=== PATIENT | male | born 1975 | race Caucasian/White ===

== ENCOUNTER 2021-07-08 08:03 | Observation (INO) | payer MEDICARE ==
[2021-07-08] MEDS ORDERED: DUONEB 0.5-3 MG/3 ml Neb IH ONE ×2 (08:07→08:12)
[2021-07-08] MEDS ORDERED: solu-MEDROL 125 MG, Sterile H2O 10 ml 2 ML IV ONE ×2 (08:12)
[2021-07-08] MEDS ORDERED: Zithromax 500 MG/ 250 ML NaCl Premix 500 MG/250 ML IVPB IV STA (08:16)
[2021-07-08] MEDS ORDERED: ROCEPHIN 2 Gm-D5w 50ML BAG** 2 G/50 ML IVPB IV STA (08:16)
[2021-07-08 08:18] LABS: A-aADO2 96; ABG HEMOGLOBIN 14.7; ABG POTASSIUM 4.3 (3.5-5.1); ABG SITE RIGHT RADIAL; ALLEN TEST OK? yes; ARTERIAL BLD GAS O2 SATURATION 98.1 % (95-100); ARTERIAL BLOOD GAS BASE EXCESS 1.1 (-2.0-2.0); ARTERIAL BLOOD GAS FIO2 32 %; ARTERIAL BLOOD GAS PCO2 37 mmHg (35-45); ARTERIAL BLOOD GAS PO2 86 mmHg (75-100); ARTERIAL BLOOD GAS pH 7.44 (7.35-7.45); CARBOXYHEMOGLOBIN 3.3 % THgb (0.0-6.9); HCO3- 25.1 (22-28); Methhemoglobin 0.9 % (1.4-1.5)
[2021-07-08] MEDS ORDERED: BRETHINE 1 MG/ML SQ ONE (08:18)
--- NOTE | 2021-07-08 08:18 | ERPHSYRPT ---
- History of Present Illness Time Seen by Provider: 07/08/21 08:10 Source: patient Exam Limitations: no limitations Patient Subjective Stated Complaint: Pt states "I was helping my mom hang pictures last night and I started to have difficulty breathing. I thought I could sleep it off." Triage Nursing Assessment: Pt presented alert and oriented X 3, skin pwd. Pt has audible wheezes. Pt has audible wheezes. PT able to speak in 2 to 3 word sente nces pt tachypneic. Pt uses trimex for HIV, viral count undetectable and CD4 count was 900. Physician History: Patient is a 46-year-old male HIV positive history of COPD current smoker presents to our ED with complaints of shortness of breath that started last night. Shortness of breath progressed throughout the night. Patient ran out of his home albuterol nebulizers. Patient states his last viral load was undetectable. CD4 was 900. Patient currently on Triumeq HIV therapy. Patient symptoms are moderate in intensity. No specific worsening or improving factors. This HPI is limited due to respiratory distress. Patient able to speak in 2 and 3 word sentences. No chest pain. No nausea vomiting or diaphoresis. No diarrhea. No rash. No fever. Patient voices no other complaints or concerns at this time. Timing/Duration: yesterday Activities at Onset: none Severity of Dyspnea-Max: moderate Severity of Dyspnea-Current: moderate Possible Cause: occasional episodes Modifying Factors: Improves With: nothing Associated Symptoms: anxiety, cough, wheezing, No ankle swelling, No leg swelling, No sweating, No tightness, No tingling face Allergies/Adverse Reactions: No Known Drug Allergies Allergy (Verified 07/08/21 08:16) Home Medications: Abacavir/Dolutegravir/Lamivudi [Triumeq 600-50-300 mg Tablet] 1 tab PO DAILY 07/08/21 [History] Albuterol Sulfate [Proair Respiclick] 90 mcg IH DAILY 07/08/21 [History] Budesonide/Formoterol Fumarate [Symbicort 160-4.5 Mcg Inhaler] 10.2 gm IH DAILY 07/08/21 [History] Bumetanide 1 mg [Bumex 1 mg] 1 mg PO DAILY 07/08/21 [History] Carvedilol 6.25 mg [Coreg 6.25 MG] 6.25 mg PO BID 07/08/21 [History] Losartan Potassium 50 mg [Cozaar 50 MG] 50 mg PO DAILY 07/08/21 [History] Pantoprazole 20 mg [Protonix 20MG Tablet] 20 mg PO DAILY 07/08/21 [History] Tiotropium [place] [Spiriva Respimat] 1 unit IH DAILY 07/08/21 [History] Hx Tetanus, Diphtheria Vaccination/Date Given: No Hx Influenza Vaccination/Date Given: No Hx Pneumococcal Vaccination/Date Given: No Immunizations Up to Date: Yes Travel Risk - International Travel Have you traveled outside of the country in past 3 weeks: No - Coronavirus Screening Are you exhibiting any of the following symptoms?: No Close contact with a COVID-19 positive Pt in past 14-21 Days: No - Vaccine Status Have you recieved a Covid-19 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: 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 - Vaccination Dates Date of 2cond Vaccination (if applicable): UNKNOWN - Review of Systems Constitutional: No Symptoms, No Fever, No Chills Eyes: No Symptoms Ears, Nose, & Throat: No Symptoms Respiratory: No Symptoms, No Cough, No Dyspnea Cardiac: No Symptoms, No Chest Pain, No Edema, No Syncope Abdominal/Gastrointestinal: No Symptoms, No Abdominal Pain, No Nausea, No Vomiting, No Diarrhea Genitourinary Symptoms: No Symptoms, No Dysuria Musculoskeletal: No Symptoms, No Back Pain, No Neck Pain Skin: No Symptoms, No Rash Neurological: No Symptoms, No Dizziness, No Focal Weakness, No Sensory Changes Psychological: No Symptoms Endocrine: No Symptoms Hematologic/Lymphatic: No Symptoms Immunological/Allergic: No Symptoms All Other Systems: Reviewed and Negative - Past Medical History Pertinent Past Medical History: Yes Neurological History: Stroke ENT History: No Pertinent History Cardiac History: High Cholesterol, Hypertension Respiratory History: Asthma, COPD Endocrine Medical History: No Pertinent History Musculoskeletal History: Bone Cancer GI Medical History: GERD History: No Pertinent History Psycho-Social History: Anxiety, Depression Male Reproductive Disorders: No Pertinent History - Past Surgical History Past Surgical History: Yes Other Surgical History: left wrist. jose - Social History Smoking Status: Current every day smoker How long have you smoked: 1 p Exposure to second hand smoke: Yes Drug Use: marijuana Patient Lives Alone: No - Nursing Vital Signs Nursing Vital Signs: Initial Vital Signs Temperature 97.1 F 07/08/21 08:04 Pulse Rate 117 H 07/08/21 08:04 Respiratory Rate 32 H 07/08/21 08:04 Blood Pressure 142/102 07/08/21 08:04 O2 Sat by Pulse Oximetry 92 L 07/08/21 08:04 Pain Scale Pain Intensity 0 - Physical Exam General Appearance: no apparent distress, alert Eye Exam: PERRL/EOMI, eyes nml inspection Ears, Nose, Throat Exam: hearing grossly normal, normal ENT inspection, normal pharynx Neck Exam: normal inspection, non-tender, supple, full range of motion Respiratory Exam: respiratory distress, diminished breath sounds, accessory muscle use, rhonchi, wheezing, No stridor, No pleural rub Cardiovascular/Chest Exam: normal heart sounds, regular rate/rhythm, No murmur Abdominal/Gastrointestinal Exam: soft, No tenderness, No distention, No mass Extremity Exam: non-tender, normal range of motion, normal inspection, no calf tenderness, no pedal edema Peripheral Pulses Exam: dorsalis-pedis (R): 2+, dorsalis-pedis (L): 2+ Neurologic Exam: alert, oriented x 3, cooperative, intraoperative neuro tech II-XII nml as tested, sensation nml, No motor deficits Skin Exam: normal color, warm, No dry Lymphatic Exam: No adenopathy SpO2 Interpretation: hypoxic SpO2: 92 O2 Delivery: Room Air - Course Nursing assessment & vital signs reviewed: Yes EKG Interpreted by Me: RATE ([id number]), Sinus Tach, NORMAL AXIS, NORMAL INTERVALS - Radiology Exams Chest X-ray Interpretation: Teleradiologist Report (Portable chest demonstrates small right base calcified granuloma. Emitting heart lungs are normal bony thorax intact.) Ordered Tests: Active Orders 24 hr Category Date Time Status Test Desk Trouble Locator STAT Care 07/08/21 08:13 Active EKG-ER Only STAT Care 07/08/21 08:12 Active IV Insertion STAT Care 07/08/21 08:12 Active Pulse Oximetry (ED) STAT Care 07/08/21 08:12 Active CHEST 1 VIEW (PORTABLE) Stat Exams 07/08/21 08:13 Completed CHEST WITH CONTRAST [CT] Stat Exams 07/08/21 09:01 Completed ARTERIAL BLOOD GASES Stat Lab 07/08/21 08:12 Completed BLOOD CULTURE Stat Lab 07/08/21 08:32 Received CBC W DIFF Stat Lab 07/08/21 08:12 Completed CMP Stat Lab 07/08/21 08:10 Completed D-DIMER QUANTITATIVE Stat Lab 07/08/21 08:18 Completed INFLUENZA A+B DEBBIE Stat Lab 07/08/21 08:32 Completed Lactic Acid Urgent Lab 07/08/21 08:15 Completed NT PRO BNP Stat Lab 07/08/21 08:10 Completed TROPONIN Q3H Lab 07/08/21 08:10 Completed TROPONIN Q3H Lab 07/08/21 11:30 Completed TROPONIN Q3H Lab 07/08/21 14:15 Ordered TROPONIN Q3H Lab 07/08/21 17:15 Ordered TROPONIN Q3H Lab 07/08/21 20:15 Ordered UA W/RFX UR CULTURE Stat Lab 07/08/21 08:59 Completed Respiratory Therapy Assessment DAILY RT 07/08/21 08:31 Active Transfer Order Routine Transfer 07/08/21 Ordered Medication Summary Generic Name Dose Route Start Last Admin Trade Name Freq PRN Reason Stop Dose Admin Magnesium Sulfate/Dextrose 100 mls @ 100 mls/hr 07/08/21 08:30 07/08/21 09:58 Magnesium 1 Gm / 100 Ml D5w IV 07/08/21 10:29 100 mls/hr Q1H MILEY Administration Discontinued Medications Generic Name Dose Route Start Last Admin Trade Name Freq PRN Reason Stop Dose Admin Albuterol/Ipratropium 3 ml 07/08/21 08:12 07/08/21 08:20 Ipratropium/Albuterol Sulfate 3 Ml Ampul.Neb IH 07/08/21 08:13 3 ml STAT ONE Administration Albuterol/Ipratropium Confirm 07/08/21 08:07 Ipratropium/Albuterol Sulfate 3 Ml Ampul.Neb Administered 07/08/21 08:08 Dose 3 ml IH .STK-MED ONE Methylprednisolone Sodium 0 mg 07/08/21 08:12 07/08/21 08:28 Succinate 125 mg/ Sterile IV 07/08/21 08:13 125 mg Water 2 ml STAT ONE Administration Ceftriaxone Sodium/Dextrose 2 g in 50 mls @ 100 mls/hr 07/08/21 08:16 07/08/21 10:31 Rocephin 2 Gm-D5w 50ml Bag IV 07/08/21 08:45 Infused STAT STA Infusion Azithromycin 500 mg in 250 mls @ 250 mls/hr 07/08/21 08:16 07/08/21 10:31 Zithromax 500 Mg/ 250 Ml Nacl Premix IV 07/08/21 09:15 Infused STAT STA Infusion Azithromycin Confirm 07/08/21 08:27 Zithromax 500 Mg/ 250 Ml Nacl Premix Administered 07/08/21 08:28 Dose 500 mg in 250 mls @ ud IV .STK-MED ONE Ceftriaxone Sodium/Dextrose Confirm 07/08/21 08:27 Rocephin 2 Gm-D5w 50ml Bag Administered 07/08/21 08:28 Dose 2 g in 50 mls @ ud IV .STK-MED ONE Methylprednisolone Sodium Succinate Confirm 07/08/21 08:27 Methylprednis Sod Succ 125 Mg/2 Ml Vial Administered 07/08/21 08:28 Dose 125 mg .ROUTE .STK-MED ONE Sterile Water Confirm 07/08/21 08:27 Water For Injection,Sterile 10 Ml Vial Administered 07/08/21 08:28 Dose 10 ml IJ .STK-MED ONE Terbutaline Sulfate 0.25 mg 07/08/21 08:18 07/08/21 08:28 Terbutaline Sulfate 1 Mg/Ml Vial SQ 07/08/21 08:19 0.25 mg STAT ONE Administration Terbutaline Sulfate Confirm 07/08/21 08:26 Terbutaline Sulfate 1 Mg/Ml Vial Administered 07/08/21 08:27 Dose 1 mg .ROUTE .STK-MED ONE Lab/Rad Data: Laboratory Result Diagrams 07/08/21 08:12 07/08/21 08:10 Laboratory Results 07/08/21 07/08/21 07/08/21 Range/Units 11:30 11:09 08:59 WBC (4.0-10.5) K/mm3 RBC (4.1-5.6) M/mm3 Hgb (12.5-18.0) gm/dl Hct (42-50) % MCV (78-100) fl MCH (26-32) pg MCHC (32-36) g/dl RDW (11.5-14.0) % Plt Count (150-450) K/mm3 MPV (7.5-11.0) fl Gran % (36.0-66.0) % Eos # (Auto) (0-0.5) Absolute Lymphs (auto) (1.0-4.6) Absolute Monos (auto) (0.0-1.3) Lymphocytes % (24.0-44.0) % Monocytes % (0.0-12.0) % Eosinophils % (0.00-5.0) % Basophils % (0.0-0.4) % Absolute Granulocytes (1.4-6.9) Basophils # (0-0.4) D-Dimer (215-500) ng/mL Puncture Site pCO2 (35-45) mmHg pO2 (75-100) mmHg Base Excess (-2.0-2.0) O2 Saturation (94-100) g/dF ABG pH (7.35-7.45) ABG HCO3 (22-28) ABG O2 Sat (Measured) (95-100) % Crispin Test A-a Gradient a/A Ratio Hemoglobin Carboxyhemoglobin (0.0-6.9) % THgb Methemoglobin (1.4-1.5) % Temperature C POC O2 Flow Rate % Sodium (137-145) mmol/L Potassium (3.5-5.1) mmol/L Chloride (98-107) mmol/L Carbon Dioxide (22-30) mmol/L Anion Gap (5-15) MEQ/L BUN (9-20) mg/dL Creatinine (0.66-1.25) mg/dL Estimated GFR ML/MIN Glucose (74-106) mg/dL Lactic Acid (0.4-2.0) Calcium (8.4-10.2) mg/dL Total Bilirubin (0.2-1.3) mg/dL AST (17-59) U/L ALT (0-50) U/L Alkaline Phosphatase (38-126) U/L Troponin I < 0.012 (0.000-0.034) ng/mL NT-Pro-B Natriuret Pep (0-450) pg/mL Serum Total Protein (6.3-8.2) g/dL Albumin (3.5-5.0) g/dL Urine Color COLORLESS (YELLOW) Urine Appearance CLEAR (CLEAR) Urine pH 5.0 (5-6) Ur Specific [place] 1.005 (1.005-1.025) Urine Protein NEGATIVE (Negative) Urine Ketones NEGATIVE (NEGATIVE) Urine Blood NEGATIVE (0-5) Eric/ul Urine Nitrite NEGATIVE (NEGATIVE) Urine Bilirubin NEGATIVE (NEGATIVE) Urine Urobilinogen NEGATIVE (0-1) mg/dL Ur Leukocyte Esterase NEGATIVE (NEGATIVE) Urine WBC (Auto) NONE (0-5) /HPF Urine RBC (Auto) NONE (0-2) /HPF U Epithel Cells (Auto) NONE (FEW) /HPF Urine Bacteria (Auto) NONE (NEGATIVE) /HPF Urine Culture Reflexed NO (NO) Urine Glucose NEGATIVE (NEGATIVE) mg/dL Influenza Type A Ag NEGATIVE (NEGATIVE) Influenza Type B Ag NEGATIVE (NEGATIVE) RSV (PCR) NEGATIVE (Negative) SARS-CoV-2 (PCR) NEGATIVE (NEGATIVE) 07/08/21 07/08/21 07/08/21 Range/Units 08:32 08:18 08:15 WBC (4.0-10.5) K/mm3 RBC (4.1-5.6) M/mm3 Hgb (12.5-18.0) gm/dl Hct (42-50) % MCV (78-100) fl MCH (26-32) pg MCHC (32-36) g/dl RDW (11.5-14.0) % Plt Count (150-450) K/mm3 MPV (7.5-11.0) fl Gran % (36.0-66.0) % Eos # (Auto) (0-0.5) Absolute Lymphs (auto) (1.0-4.6) Absolute Monos (auto) (0.0-1.3) Lymphocytes % (24.0-44.0) % Monocytes % (0.0-12.0) % Eosinophils % (0.00-5.0) % Basophils % (0.0-0.4) % Absolute Granulocytes (1.4-6.9) Basophils # (0-0.4) D-Dimer 872 H* (215-500) ng/mL Puncture Site pCO2 (35-45) mmHg pO2 (75-100) mmHg Base Excess (-2.0-2.0) O2 Saturation (94-100) g/dF ABG pH (7.35-7.45) ABG HCO3 (22-28) ABG O2 Sat (Measured) (95-100) % Crispin Test A-a Gradient a/A Ratio Hemoglobin Carboxyhemoglobin (0.0-6.9) % THgb Methemoglobin (1.4-1.5) % Temperature C POC O2 Flow Rate % Sodium (137-145) mmol/L Potassium (3.5-5.1) mmol/L Chloride (98-107) mmol/L Carbon Dioxide (22-30) mmol/L Anion Gap (5-15) MEQ/L BUN (9-20) mg/dL Creatinine (0.66-1.25) mg/dL Estimated GFR ML/MIN Glucose (74-106) mg/dL Lactic Acid 1.5 (0.4-2.0) Calcium (8.4-10.2) mg/dL Total Bilirubin (0.2-1.3) mg/dL AST (17-59) U/L ALT (0-50) U/L Alkaline Phosphatase (38-126) U/L Troponin I (0.000-0.034) ng/mL NT-Pro-B Natriuret Pep (0-450) pg/mL Serum Total Protein (6.3-8.2) g/dL Albumin (3.5-5.0) g/dL Urine Color (YELLOW) Urine Appearance (CLEAR) Urine pH (5-6) Ur Specific [place] (1.005-1.025) Urine Protein (Negative) Urine Ketones (NEGATIVE) Urine Blood (0-5) Eric/ul Urine Nitrite (NEGATIVE) Urine Bilirubin (NEGATIVE) Urine Urobilinogen (0-1) mg/dL Ur Leukocyte Esterase (NEGATIVE) Urine WBC (Auto) (0-5) /HPF Urine RBC (Auto) (0-2) /HPF U Epithel Cells (Auto) (FEW) /HPF Urine Bacteria (Auto) (NEGATIVE) /HPF Urine Culture Reflexed (NO) Urine Glucose (NEGATIVE) mg/dL Influenza Type A Ag NEGATIVE (NEGATIVE) Influenza Type B Ag NEGATIVE (NEGATIVE) RSV (PCR) (Negative) SARS-CoV-2 (PCR) (NEGATIVE) 07/08/21 07/08/21 07/08/21 Range/Units 08:12 08:12 08:10 WBC 9.1 (4.0-10.5) K/mm3 RBC 4.90 (4.1-5.6) M/mm3 Hgb 14.4 (12.5-18.0) gm/dl Hct 46.3 (42-50) % MCV 94.5 (78-100) fl MCH 29.4 (26-32) pg MCHC 31.1 L (32-36) g/dl RDW 15.6 H (11.5-14.0) % Plt Count 265 (150-450) K/mm3 MPV 10.3 (7.5-11.0) fl Gran % 69.3 H (36.0-66.0) % Eos # (Auto) 0.33 (0-0.5) Absolute Lymphs (auto) 1.39 (1.0-4.6) Absolute Monos (auto) 1.05 (0.0-1.3) Lymphocytes % 15.3 L (24.0-44.0) % Monocytes % 11.5 (0.0-12.0) % Eosinophils % 3.6 (0.00-5.0) % Basophils % 0.3 (0.0-0.4) % Absolute Granulocytes 6.30 (1.4-6.9) Basophils # 0.03 (0-0.4) D-Dimer (215-500) ng/mL Puncture Site RIGHT RADIAL pCO2 37 (35-45) mmHg pO2 86 (75-100) mmHg Base Excess 1.1 (-2.0-2.0) O2 Saturation 94.0 (94-100) g/dF ABG pH 7.44 (7.35-7.45) ABG HCO3 25.1 (22-28) ABG O2 Sat (Measured) 98.1 (95-100) % Crispin Test yes A-a Gradient 96 a/A Ratio 0.47 Hemoglobin 14.7 Carboxyhemoglobin 3.3 (0.0-6.9) % THgb Methemoglobin 0.9 L (1.4-1.5) % Temperature 37.0 C POC O2 Flow Rate 32 % Sodium (137-145) mmol/L Potassium 4.3 (3.5-5.1) mmol/L Chloride (98-107) mmol/L Carbon Dioxide (22-30) mmol/L Anion Gap (5-15) MEQ/L BUN (9-20) mg/dL Creatinine (0.66-1.25) mg/dL Estimated GFR ML/MIN Glucose (74-106) mg/dL Lactic Acid (0.4-2.0) Calcium (8.4-10.2) mg/dL Total Bilirubin (0.2-1.3) mg/dL AST (17-59) U/L ALT (0-50) U/L Alkaline Phosphatase (38-126) U/L Troponin I < 0.012 (0.000-0.034) ng/mL NT-Pro-B Natriuret Pep (0-450) pg/mL Serum Total Protein (6.3-8.2) g/dL Albumin (3.5-5.0) g/dL Urine Color (YELLOW) Urine Appearance (CLEAR) Urine pH (5-6) Ur Specific [place] (1.005-1.025) Urine Protein (Negative) Urine Ketones (NEGATIVE) Urine Blood (0-5) Eric/ul Urine Nitrite (NEGATIVE) Urine Bilirubin (NEGATIVE) Urine Urobilinogen (0-1) mg/dL Ur Leukocyte Esterase (NEGATIVE) Urine WBC (Auto) (0-5) /HPF Urine RBC (Auto) (0-2) /HPF U Epithel Cells (Auto) (FEW) /HPF Urine Bacteria (Auto) (NEGATIVE) /HPF Urine Culture Reflexed (NO) Urine Glucose (NEGATIVE) mg/dL Influenza Type A Ag (NEGATIVE) Influenza Type B Ag (NEGATIVE) RSV (PCR) (Negative) SARS-CoV-2 (PCR) (NEGATIVE) 07/08/21 Range/Units 08:10 WBC (4.0-10.5) K/mm3 RBC (4.1-5.6) M/mm3 Hgb (12.5-18.0) gm/dl Hct (42-50) % MCV (78-100) fl MCH (26-32) pg MCHC (32-36) g/dl RDW (11.5-14.0) % Plt Count (150-450) K/mm3 MPV (7.5-11.0) fl Gran % (36.0-66.0) % Eos # (Auto) (0-0.5) Absolute Lymphs (auto) (1.0-4.6) Absolute Monos (auto) (0.0-1.3) Lymphocytes % (24.0-44.0) % Monocytes % (0.0-12.0) % Eosinophils % (0.00-5.0) % Basophils % (0.0-0.4) % Absolute Granulocytes (1.4-6.9) Basophils # (0-0.4) D-Dimer (215-500) ng/mL Puncture Site pCO2 (35-45) mmHg pO2 (75-100) mmHg Base Excess (-2.0-2.0) O2 Saturation (94-100) g/dF ABG pH (7.35-7.45) ABG HCO3 (22-28) ABG O2 Sat (Measured) (95-100) % Crispin Test A-a Gradient a/A Ratio Hemoglobin Carboxyhemoglobin (0.0-6.9) % THgb Methemoglobin (1.4-1.5) % Temperature C POC O2 Flow Rate % Sodium 141 (137-145) mmol/L Potassium 4.6 (3.5-5.1) mmol/L Chloride 105 (98-107) mmol/L Carbon Dioxide 28 (22-30) mmol/L Anion Gap 13.4 (5-15) MEQ/L BUN 14 (9-20) mg/dL Creatinine 1.11 (0.66-1.25) mg/dL Estimated GFR > 60.0 ML/MIN Glucose 102 (74-106) mg/dL Lactic Acid (0.4-2.0) Calcium 8.9 (8.4-10.2) mg/dL Total Bilirubin 0.30 (0.2-1.3) mg/dL AST 26 (17-59) U/L ALT 18 (0-50) U/L Alkaline Phosphatase 87 (38-126) U/L Troponin I (0.000-0.034) ng/mL NT-Pro-B Natriuret Pep 48.3 (0-450) pg/mL Serum Total Protein 7.8 (6.3-8.2) g/dL Albumin 4.4 (3.5-5.0) g/dL Urine Color (YELLOW) Urine Appearance (CLEAR) Urine pH (5-6) Ur Specific [place] (1.005-1.025) Urine Protein (Negative) Urine Ketones (NEGATIVE) Urine Blood (0-5) Eric/ul Urine Nitrite (NEGATIVE) Urine Bilirubin (NEGATIVE) Urine Urobilinogen (0-1) mg/dL Ur Leukocyte Esterase (NEGATIVE) Urine WBC (Auto) (0-5) /HPF Urine RBC (Auto) (0-2) /HPF U Epithel Cells (Auto) (FEW) /HPF Urine Bacteria (Auto) (NEGATIVE) /HPF Urine Culture Reflexed (NO) Urine Glucose (NEGATIVE) mg/dL Influenza Type A Ag (NEGATIVE) Influenza Type B Ag (NEGATIVE) RSV (PCR) (Negative) SARS-CoV-2 (PCR) (NEGATIVE) - Progress Progress: improved Air Movement: poor Progress Note: Case discussed with Dr. Pollard who accepts admission to observation. Covid test pending. D-dimer positive. CTA chest negative for PE. Patient responding well to nebulizer treatment and steroids. Patient not ready for discharge. Patient is still wheezing however he is no longer hypoxic at this time. Will admit for additional treatment of hypoxia/COPD exacerbation as well. Patient is a smoker. Patient is a smoker. Patient aware that he must quit smoking. 07/08/21 10:50 Patient is Covid negative. Admission orders placed. Plan of care discussed with patient. He agrees to admission [facility] for further evaluation and treatment. Portions of this note were created with voice recognition technology. There may be grammatical, spelling, punctuation or sound alike errors 07/08/21 12:52 07/08/21 12:54 Blood Culture(s) Obtained: Yes Antibiotics given: Yes Discussed with : Jillian Counseled pt/family regarding: lab results, diagnosis, rad results, smoking cessation - Departure Departure Disposition: Observation Clinical Impression: Lung granuloma, Arthritis of spine, Renal cyst, COPD exacerbation Condition: Stable Critical Care Time: No Referrals: DOCTOR,NO FAMILY [Primary Care Provider] - Follow up/PCP as directed Instructions: Chronic Obstructive Pulmonary Disease
[2021-07-08 08:26] LABS: BASOPHIL % 0.3 % (0.0-0.4); Basophil (Absolute #) 0.03 (0-0.4); Eosinophil % 3.6 % (0.00-5.0); Eosinophil (Absolute #) 0.33 (0-0.5); Hematocrit 46.3 % (42-50); Hemoglobin 14.4 gm/dl (12.5-18.0); Lymphocyte (Absolute #) 1.39 (1.0-4.6); Lymphocytes % 15.3 % (24.0-44.0); Mean Cell Volume 94.5 fl (78-100); Mean Corpuscular Hemoglobin 29.4 pg (26-32); Mean Corpuscular Hgb Concent. 31.1 g/dl (32-36); Mean Platelet Volume 10.3 fl (7.5-11.0); Monocyte (Absolute #) 1.05 (0.0-1.3); Monocytes % 11.5 % (0.0-12.0); Neutrophil % 69.3 % (36.0-66.0); Platelet Count 265 K/mm3 (150-450); Red Cell Distribution Width 15.6 % (11.5-14.0); White Blood Count 9.1 K/mm3 (4.0-10.5)
[2021-07-08] MEDS ORDERED: BRETHINE 1 MG/ML ONE (08:26)
[2021-07-08] MEDS ORDERED: Sterile H2O 10 ml IJ ONE (08:27)
[2021-07-08] MEDS ORDERED: ROCEPHIN 2 Gm-D5w 50ML BAG** 2 G/50 ML IVPB IV ONE (08:27)
[2021-07-08] MEDS ORDERED: Zithromax 500 MG/ 250 ML NaCl Premix 500 MG/250 ML IVPB IV ONE (08:27)
[2021-07-08] MEDS ORDERED: solu-MEDROL ONE (08:27)
[2021-07-08] MEDS ORDERED: Magnesium 1 Gm / 100 Ml D5W*** 100 ML IV ONE ×2 (08:27→08:57)
[2021-07-08] MEDS: Magnesium 1 Gm / 100 Ml D5W*** 100 ML IV SCH ×2 (08:30→09:58)
[2021-07-08 08:38] LABS: ALBUMIN 4.4 g/dL (3.5-5.0); ALKALINE PHOSPHATASE 87 U/L (38-126); ANION GAP 13.4 MEQ/L (5-15); BLOOD UREA NITROGEN 14 mg/dL (9-20); CHLORIDE 105 mmol/L (98-107); Calcium 8.9 mg/dL (8.4-10.2); Carbon Dioxide 28 mmol/L (22-30); Creatinine 1 1.11 mg/dL (0.66-1.25); EST GLOMERULAR FILTRATION RATE > 60.0 ML/MIN; Glucose 102 mg/dL (74-106); NT PRO BNP 48.3 pg/mL (0-450); Potassium 4.6 mmol/L (3.5-5.1); SGOT/AST 26 U/L (17-59); SGPT/ALT 18 U/L (0-50); SODIUM 141 mmol/L (137-145); Total Protein 7.8 g/dL (6.3-8.2)
[2021-07-08 09:02] LABS: Appearance CLEAR (CLEAR); Bilirubin NEGATIVE (NEGATIVE); Blood NEGATIVE Ery/ul (0-5); Glucose NEGATIVE (NEGATIVE); Ketones NEGATIVE (NEGATIVE); Leukocyte Esterase NEGATIVE (NEGATIVE); Nitrite NEGATIVE (NEGATIVE); Protein,Urine Dip NEGATIVE (Negative); Specific Gravity 1.005 (1.005-1.025); Urobilinogen NEGATIVE mg/dL (0-1)
[2021-07-08 09:10] LABS: INFLUENZA A NEGATIVE (NEGATIVE); INFLUENZA B NEGATIVE (NEGATIVE)
--- NOTE | 2021-07-08 09:22 | XRAY ---
Indication: Cough and short of breath. Comparison: None Portable chest demonstrates small right base calcified granuloma. Remaining heart and lungs normal. Bony thorax intact.
--- NOTE | 2021-07-08 10:29 | XRAY ---
Indication: Short of breath. Elevated d-dimer. Multiple contiguous axial images obtained through the chest using 100 cc Isovue 370 contrast and PE protocol. Comparison: None Suboptimal opacification of the pulmonary arteries limits evaluation for pulmonary embolus. No obvious pulmonary embolus. Heart not enlarged. Aorta is normal in course and caliber. Small subcarinal calcified node. No pathologic mediastinal/hilar lymphadenopathy. Lungs inflated and clear with incidental small right lower lobe calcified granuloma. Bony thorax intact with mild degenerative changes throughout the spine. Limited upper abdomen demonstrates cholecystectomy clips and incompletely visualized left renal cysts, largest 1.4 cm. Impression: 1. Pulmonary embolus evaluation limited due to suboptimal contrast opacification. No obvious pulmonary embolus. 2. No acute cardiopulmonary abnormalities. 3. Incidental left renal cysts and old granulomatous disease.
[2021-07-08 12:18] LABS: INFLUENZA A NEGATIVE (NEGATIVE); INFLUENZA B NEGATIVE (NEGATIVE); RESPIRATORY SYNCTIAL VIRUS NEGATIVE (Negative); SARS-CoV-2 Xpert Express NEGATIVE (NEGATIVE)
[2021-07-08] MEDS ORDERED: PROVENTIL 2.5 MG/3 ML NEB IH SCH (15:00)
[2021-07-08] MEDS ORDERED: MEDICATION INTERVENTION PO SCH (15:30)
[2021-07-08] MEDS ORDERED: MEDICATION INTERVENTION MC SCH (15:30)
--- NOTE | 2021-07-08 16:15 | PCM.HP ---
History of Present Illness - Chief Complaint Chief Complaint: COPD Exacerbation History of Present Illness: is a 46 year old male with no local physician, he came to the ER complaining of a 2 day history of cough and worsening shortness of breath, he has known HIV but states last CD4 count was 900 and viral load was undetectable. His cough is nonpoductive, no fever. He recently moved to the area with a friend so has no nebulizer machine or oxygen equipment for the last month or so. - Review of Systems Constitutional: No Fever, No Chills Respiratory: Cough, Short Of Breath, Wheezing Cardiac: No Chest Pain, No Edema, No Syncope Abdominal/Gastrointestinal: No Abdominal Pain, No Nausea, No Vomiting, No Diarrhea Genitourinary Symptoms: No Dysuria Skin: No Rash All Other Systems: Reviewed and Negative Medications & Allergies Home Medications: Home Medication List Abacavir/Dolutegravir/Lamivudi [Triumeq 600-50-300 mg Tablet] 1 tab PO DAILY 07/08/21 [History Confirmed 07/08/21] Albuterol Sulfate [Proair Respiclick] 90 mcg IH DAILY 07/08/21 [History Confirmed 07/08/21] Budesonide/Formoterol Fumarate [Symbicort 160-4.5 Mcg Inhaler] 10.2 gm IH DAILY 07/08/21 [History Confirmed 07/08/21] Bumetanide 1 mg [Bumex 1 mg] 1 mg PO BID 07/08/21 [History Confirmed 07/08/21] Carvedilol 6.25 mg [Coreg 6.25 MG] 6.25 mg PO BID 07/08/21 [History Confirmed 07/08/21] Famotidine [Pepcid] 40 mg PO DAILY 07/08/21 [History Confirmed 07/08/21] Fluticasone Propionate [Flovent Diskus] 50 mcg IH DAILY 07/08/21 [History Confirmed 07/08/21] Losartan Potassium 50 mg [Cozaar 50 MG] 100 mg PO DAILY 07/08/21 [History Confirmed 07/08/21] Oxybutynin Chloride [Oxybutynin Chloride ER] 5 mg PO DAILY 07/08/21 [History Confirmed 07/08/21] Pantoprazole 20 mg [Protonix 20MG Tablet] 20 mg PO DAILY 07/08/21 [History Confirmed 07/08/21] Tiotropium [place] [Spiriva Respimat] 1 unit IN BID 07/08/21 [History Confirmed 07/08/21] Allergies/Adverse Reactions: Allergies Allergy/AdvReac Type Severity Reaction Status Date / Time ciprofloxacin [From Cipro] Allergy Severe Verified 07/08/21 13:29 - Past Medical History Past Medical History: No Neurological History: Peripheral Neuropathy, Stroke ENT History: No Pertinent History Cardiac History: High Cholesterol, Hypertension Respiratory History: Asthma, COPD, Pneumonia, Sleep Apnea Endocrine Medical History: No Pertinent History Musculoskelatal History: Arthritis GI Medical History: GERD, Hemorrhoids History: No Pertinent History Pyscho-Social History: Depression Male Reproductive Disorders: No Pertinent History - Past Surgical History Past Surgical History: Yes Neuro Surgical History: No Pertinent History Cardiac History: No Pertinent History Respiratory Surgery: No Pertinent History GI Surgical History: Cholecystectomy Genitourinary Surgical Hx: No Pertinent History Musculskeletal Surgical Hx: Orthopedic Surgery Male Surgical History: No Pertinent History Other Surgical History: left wrist 9 screws and 1 plate - Social History Smoking Status: Current every day smoker How long have you smoked: 20+ years Exposure to second hand smoke: Yes Alcohol: Rarely Drug Use: marijuana - Physical Exam Vital Signs: Vital Signs - 24 hr Temp Pulse Resp BP Pulse Ox 07/08/21 15:33 96.8 F 111 H 18 152/79 89 L 07/08/21 15:29 104 H 24 86 L 07/08/21 13:38 97.3 F 100 H 30 H 122/69 90 L 07/08/21 12:55 92 L 07/08/21 12:45 97.2 F 90 20 105/58 96 07/08/21 11:55 97.2 F 98 H 20 133/90 98 07/08/21 10:32 97.9 F 102 H 20 106/71 98 07/08/21 09:08 97.9 F 98 H 24 114/76 94 L 07/08/21 08:59 94 L 07/08/21 08:34 106 H 28 H 96 07/08/21 08:04 97.1 F 117 H 32 H 142/102 95 General Appearance: obese, other (smells strongly of body odor, poor hygiene noted.) Neurologic Exam: alert, cooperative Respiratory Exam: accessory muscle use, prolonged expirations, wheezing Cardiovascular Exam: regular rate/rhythm, normal heart sounds, normal peripheral pulses Gastrointestinal/Abdomen Exam: soft, normal bowel sounds, No tenderness, No mass Extremity Exam: normal inspection, normal range of motion, pelvis stable Skin Exam: normal color, warm, dry, No rash Results - Labs Lab/Micro Results: Lab Results-Last 24 Hours 07/08/21 07/08/21 07/08/21 Range/Units 08:10 08:10 08:12 WBC 9.1 (4.0-10.5) K/mm3 RBC 4.90 (4.1-5.6) M/mm3 Hgb 14.4 (12.5-18.0) gm/dl Hct 46.3 (42-50) % MCV 94.5 (78-100) fl MCH 29.4 (26-32) pg MCHC 31.1 L (32-36) g/dl RDW 15.6 H (11.5-14.0) % Plt Count 265 (150-450) K/mm3 MPV 10.3 (7.5-11.0) fl Gran % 69.3 H (36.0-66.0) % Eos # (Auto) 0.33 (0-0.5) Absolute Lymphs (auto) 1.39 (1.0-4.6) Absolute Monos (auto) 1.05 (0.0-1.3) Lymphocytes % 15.3 L (24.0-44.0) % Monocytes % 11.5 (0.0-12.0) % Eosinophils % 3.6 (0.00-5.0) % Basophils % 0.3 (0.0-0.4) % Absolute Granulocytes 6.30 (1.4-6.9) Basophils # 0.03 (0-0.4) D-Dimer (215-500) ng/mL Puncture Site pCO2 (35-45) mmHg pO2 (75-100) mmHg Base Excess (-2.0-2.0) O2 Saturation (94-100) g/dF ABG pH (7.35-7.45) ABG HCO3 (22-28) ABG O2 Sat (Measured) (95-100) % Crispin Test A-a Gradient a/A Ratio Hemoglobin Carboxyhemoglobin (0.0-6.9) % THgb Methemoglobin (1.4-1.5) % Temperature C POC O2 Flow Rate % Sodium 141 (137-145) mmol/L Potassium 4.6 (3.5-5.1) mmol/L Chloride 105 (98-107) mmol/L Carbon Dioxide 28 (22-30) mmol/L Anion Gap 13.4 (5-15) MEQ/L BUN 14 (9-20) mg/dL Creatinine 1.11 (0.66-1.25) mg/dL Estimated GFR > 60.0 ML/MIN Glucose 102 (74-106) mg/dL Lactic Acid (0.4-2.0) Calcium 8.9 (8.4-10.2) mg/dL Total Bilirubin 0.30 (0.2-1.3) mg/dL AST 26 (17-59) U/L ALT 18 (0-50) U/L Alkaline Phosphatase 87 (38-126) U/L Troponin I < 0.012 (0.000-0.034) ng/mL NT-Pro-B Natriuret Pep 48.3 (0-450) pg/mL Serum Total Protein 7.8 (6.3-8.2) g/dL Albumin 4.4 (3.5-5.0) g/dL Urine Color (YELLOW) Urine Appearance (CLEAR) Urine pH (5-6) Ur Specific [place] (1.005-1.025) Urine Protein (Negative) Urine Ketones (NEGATIVE) Urine Blood (0-5) Eric/ul Urine Nitrite (NEGATIVE) Urine Bilirubin (NEGATIVE) Urine Urobilinogen (0-1) mg/dL Ur Leukocyte Esterase (NEGATIVE) Urine WBC (Auto) (0-5) /HPF Urine RBC (Auto) (0-2) /HPF U Epithel Cells (Auto) (FEW) /HPF Urine Bacteria (Auto) (NEGATIVE) /HPF Urine Culture Reflexed (NO) Urine Glucose (NEGATIVE) mg/dL Influenza Type A Ag (NEGATIVE) Influenza Type B Ag (NEGATIVE) RSV (PCR) (Negative) SARS-CoV-2 (PCR) (NEGATIVE) 07/08/21 07/08/21 07/08/21 Range/Units 08:12 08:15 08:18 WBC (4.0-10.5) K/mm3 RBC (4.1-5.6) M/mm3 Hgb (12.5-18.0) gm/dl Hct (42-50) % MCV (78-100) fl MCH (26-32) pg MCHC (32-36) g/dl RDW (11.5-14.0) % Plt Count (150-450) K/mm3 MPV (7.5-11.0) fl Gran % (36.0-66.0) % Eos # (Auto) (0-0.5) Absolute Lymphs (auto) (1.0-4.6) Absolute Monos (auto) (0.0-1.3) Lymphocytes % (24.0-44.0) % Monocytes % (0.0-12.0) % Eosinophils % (0.00-5.0) % Basophils % (0.0-0.4) % Absolute Granulocytes (1.4-6.9) Basophils # (0-0.4) D-Dimer 872 H* (215-500) ng/mL Puncture Site RIGHT RADIAL pCO2 37 (35-45) mmHg pO2 86 (75-100) mmHg Base Excess 1.1 (-2.0-2.0) O2 Saturation 94.0 (94-100) g/dF ABG pH 7.44 (7.35-7.45) ABG HCO3 25.1 (22-28) ABG O2 Sat (Measured) 98.1 (95-100) % Crispin Test yes A-a Gradient 96 a/A Ratio 0.47 Hemoglobin 14.7 Carboxyhemoglobin 3.3 (0.0-6.9) % THgb Methemoglobin 0.9 L (1.4-1.5) % Temperature 37.0 C POC O2 Flow Rate 32 % Sodium (137-145) mmol/L Potassium 4.3 (3.5-5.1) mmol/L Chloride (98-107) mmol/L Carbon Dioxide (22-30) mmol/L Anion Gap (5-15) MEQ/L BUN (9-20) mg/dL Creatinine (0.66-1.25) mg/dL Estimated GFR ML/MIN Glucose (74-106) mg/dL Lactic Acid 1.5 (0.4-2.0) Calcium (8.4-10.2) mg/dL Total Bilirubin (0.2-1.3) mg/dL AST (17-59) U/L ALT (0-50) U/L Alkaline Phosphatase (38-126) U/L Troponin I (0.000-0.034) ng/mL NT-Pro-B Natriuret Pep (0-450) pg/mL Serum Total Protein (6.3-8.2) g/dL Albumin (3.5-5.0) g/dL Urine Color (YELLOW) Urine Appearance (CLEAR) Urine pH (5-6) Ur Specific [place] (1.005-1.025) Urine Protein (Negative) Urine Ketones (NEGATIVE) Urine Blood (0-5) Eric/ul Urine Nitrite (NEGATIVE) Urine Bilirubin (NEGATIVE) Urine Urobilinogen (0-1) mg/dL Ur Leukocyte Esterase (NEGATIVE) Urine WBC (Auto) (0-5) /HPF Urine RBC (Auto) (0-2) /HPF U Epithel Cells (Auto) (FEW) /HPF Urine Bacteria (Auto) (NEGATIVE) /HPF Urine Culture Reflexed (NO) Urine Glucose (NEGATIVE) mg/dL Influenza Type A Ag (NEGATIVE) Influenza Type B Ag (NEGATIVE) RSV (PCR) (Negative) SARS-CoV-2 (PCR) (NEGATIVE) 07/08/21 07/08/21 07/08/21 Range/Units 08:32 08:59 11:09 WBC (4.0-10.5) K/mm3 RBC (4.1-5.6) M/mm3 Hgb (12.5-18.0) gm/dl Hct (42-50) % MCV (78-100) fl MCH (26-32) pg MCHC (32-36) g/dl RDW (11.5-14.0) % Plt Count (150-450) K/mm3 MPV (7.5-11.0) fl Gran % (36.0-66.0) % Eos # (Auto) (0-0.5) Absolute Lymphs (auto) (1.0-4.6) Absolute Monos (auto) (0.0-1.3) Lymphocytes % (24.0-44.0) % Monocytes % (0.0-12.0) % Eosinophils % (0.00-5.0) % Basophils % (0.0-0.4) % Absolute Granulocytes (1.4-6.9) Basophils # (0-0.4) D-Dimer (215-500) ng/mL Puncture Site pCO2 (35-45) mmHg pO2 (75-100) mmHg Base Excess (-2.0-2.0) O2 Saturation (94-100) g/dF ABG pH (7.35-7.45) ABG HCO3 (22-28) ABG O2 Sat (Measured) (95-100) % [place]pin Test A-a Gradient a/A Ratio Hemoglobin Carboxyhemoglobin (0.0-6.9) % THgb Methemoglobin (1.4-1.5) % Temperature C POC O2 Flow Rate % Sodium (137-145) mmol/L Potassium (3.5-5.1) mmol/L Chloride (98-107) mmol/L Carbon Dioxide (22-30) mmol/L Anion Gap (5-15) MEQ/L BUN (9-20) mg/dL Creatinine (0.66-1.25) mg/dL Estimated GFR ML/MIN Glucose (74-106) mg/dL Lactic Acid (0.4-2.0) Calcium (8.4-10.2) mg/dL Total Bilirubin (0.2-1.3) mg/dL AST (17-59) U/L ALT (0-50) U/L Alkaline Phosphatase (38-126) U/L Troponin I (0.000-0.034) ng/mL NT-Pro-B Natriuret Pep (0-450) pg/mL Serum Total Protein (6.3-8.2) g/dL Albumin (3.5-5.0) g/dL Urine Color COLORLESS (YELLOW) Urine Appearance CLEAR (CLEAR) Urine pH 5.0 (5-6) Ur Specific [place] 1.005 (1.005-1.025) Urine Protein NEGATIVE (Negative) Urine Ketones NEGATIVE (NEGATIVE) Urine Blood NEGATIVE (0-5) Eric/ul Urine Nitrite NEGATIVE (NEGATIVE) Urine Bilirubin NEGATIVE (NEGATIVE) Urine Urobilinogen NEGATIVE (0-1) mg/dL Ur Leukocyte Esterase NEGATIVE (NEGATIVE) Urine WBC (Auto) NONE (0-5) /HPF Urine RBC (Auto) NONE (0-2) /HPF U Epithel Cells (Auto) NONE (FEW) /HPF Urine Bacteria (Auto) NONE (NEGATIVE) /HPF Urine Culture Reflexed NO (NO) Urine Glucose NEGATIVE (NEGATIVE) mg/dL Influenza Type A Ag NEGATIVE NEGATIVE (NEGATIVE) Influenza Type B Ag NEGATIVE NEGATIVE (NEGATIVE) RSV (PCR) NEGATIVE (Negative) SARS-CoV-2 (PCR) NEGATIVE (NEGATIVE) 07/08/21 07/08/21 Range/Units 11:30 14:02 WBC (4.0-10.5) K/mm3 RBC (4.1-5.6) M/mm3 Hgb (12.5-18.0) gm/dl Hct (42-50) % MCV (78-100) fl MCH (26-32) pg MCHC (32-36) g/dl RDW (11.5-14.0) % Plt Count (150-450) K/mm3 MPV (7.5-11.0) fl Gran % (36.0-66.0) % Eos # (Auto) (0-0.5) Absolute Lymphs (auto) (1.0-4.6) Absolute Monos (auto) (0.0-1.3) Lymphocytes % (24.0-44.0) % Monocytes % (0.0-12.0) % Eosinophils % (0.00-5.0) % Basophils % (0.0-0.4) % Absolute Granulocytes (1.4-6.9) Basophils # (0-0.4) D-Dimer (215-500) ng/mL Puncture Site pCO2 (35-45) mmHg pO2 (75-100) mmHg Base Excess (-2.0-2.0) O2 Saturation (94-100) g/dF ABG pH (7.35-7.45) ABG HCO3 (22-28) ABG O2 Sat (Measured) (95-100) % Crispin Test A-a Gradient a/A Ratio Hemoglobin Carboxyhemoglobin (0.0-6.9) % THgb Methemoglobin (1.4-1.5) % Temperature C POC O2 Flow Rate % Sodium (137-145) mmol/L Potassium (3.5-5.1) mmol/L Chloride (98-107) mmol/L Carbon Dioxide (22-30) mmol/L Anion Gap (5-15) MEQ/L BUN (9-20) mg/dL Creatinine (0.66-1.25) mg/dL Estimated GFR ML/MIN Glucose (74-106) mg/dL Lactic Acid (0.4-2.0) Calcium (8.4-10.2) mg/dL Total Bilirubin (0.2-1.3) mg/dL AST (17-59) U/L ALT (0-50) U/L Alkaline Phosphatase (38-126) U/L Troponin I < 0.012 < 0.012 (0.000-0.034) ng/mL NT-Pro-B Natriuret Pep (0-450) pg/mL Serum Total Protein (6.3-8.2) g/dL Albumin (3.5-5.0) g/dL Urine Color (YELLOW) Urine Appearance (CLEAR) Urine pH (5-6) Ur Specific [place] (1.005-1.025) Urine Protein (Negative) Urine Ketones (NEGATIVE) Urine Blood (0-5) Eric/ul Urine Nitrite (NEGATIVE) Urine Bilirubin (NEGATIVE) Urine Urobilinogen (0-1) mg/dL Ur Leukocyte Esterase (NEGATIVE) Urine WBC (Auto) (0-5) /HPF Urine RBC (Auto) (0-2) /HPF U Epithel Cells (Auto) (FEW) /HPF Urine Bacteria (Auto) (NEGATIVE) /HPF Urine Culture Reflexed (NO) Urine Glucose (NEGATIVE) mg/dL Influenza Type A Ag (NEGATIVE) Influenza Type B Ag (NEGATIVE) RSV (PCR) (Negative) SARS-CoV-2 (PCR) (NEGATIVE) - Radiology Impressions Radiology Exams & Impressions: Radiology Procedures Category Date Time Status CHEST 1 VIEW (PORTABLE) Stat Exams 07/08/21 08:13 Completed CHEST WITH CONTRAST [CT] Stat Exams 07/08/21 09:01 Completed - Other Procedures and Tests Respiratory Therapy 07/08/21 08:31 Respiratory Therapy Assessment DAILY 07/08/21 13:52 Smoking Cessation Education ONCE 07/08/21 14:17 Oxygen NASAL CANNULA 3 lpm 07/08/21 15:22 BiPap/CPAP ROUTINE Assessment/Plan (1) COPD exacerbation Current Visit: Yes Status: Acute Assessment & Plan: continue rocephin/zithromax, IV steroids and nebs. will monitor. discussed smoking cessation. Code(s): J44.1 - CHRONIC OBSTRUCTIVE PULMONARY DISEASE W (ACUTE) EXACERBATION (2) HIV positive Current Visit: Yes Status: Acute Assessment & Plan: no complications on CT to suggest PCP Code(s): Z21 - ASYMPTOMATIC HUMAN IMMUNODEFICIENCY VIRUS INFECTION STATUS
[2021-07-08] MEDS: NICODERM CQ 14 MG TOP SCH (17:03)
[2021-07-08] MEDS: BUMEX 1 MG PO SCH (17:03)
[2021-07-08] MEDS: solu-MEDROL 80 MG, Sterile H2O 10 ml 2 ML IV SCH ×4 (17:03→23:27)
[2021-07-08] MEDS: DUONEB 0.5-3 MG/3 ml Neb IH SCH ×2 (18:55→22:05)
[2021-07-08] MEDS: ADVAIR/WIXELLA 250-50 DISKUS 14 DOSE IH SCH (18:59)
[2021-07-08] MEDS ORDERED: Spiriva 18 Mcg/Cap Inhaler IH SCH (19:00)
[2021-07-08] MEDS: Coreg 6.25 MG PO SCH (21:48)
[2021-07-08] MEDS ORDERED: NON-FORMULARY ITEM (Tiotropium Bromide [Spiriva Respimat] 4 GM Mist.Inhal) IN SCH (22:00)
[2021-07-09] MEDS: DUONEB 0.5-3 MG/3 ml Neb IH SCH ×6 (02:38→22:01)
[2021-07-09] MEDS: ADVAIR/WIXELLA 250-50 DISKUS 14 DOSE IH SCH ×2 (05:27→17:45)
[2021-07-09] MEDS: solu-MEDROL 80 MG, Sterile H2O 10 ml 2 ML IV SCH ×8 (05:28→23:21)
[2021-07-09 06:05] LABS: Hematocrit 42.6 % (42-50); Mean Cell Volume 95.1 fl (78-100); Mean Corpuscular Hgb Concent. 30.5 g/dl (32-36); Mean Platelet Volume 10.4 fl (7.5-11.0); Platelet Count 251 K/mm3 (150-450); Red Blood Count 4.48 M/mm3 (4.1-5.6); Red Cell Distribution Width 15.8 % (11.5-14.0); White Blood Count 8.2 K/mm3 (4.0-10.5)
[2021-07-09 06:47] LABS: ALBUMIN 3.6 g/dL (3.5-5.0); ALKALINE PHOSPHATASE 76 U/L (38-126); BLOOD UREA NITROGEN 16 mg/dL (9-20); Carbon Dioxide 26 mmol/L (22-30); EST GLOMERULAR FILTRATION RATE > 60.0 ML/MIN; Glucose 197 mg/dL (74-106); Potassium 5.2 mmol/L (3.5-5.1); SGOT/AST 25 U/L (17-59); SGPT/ALT 18 U/L (0-50); SODIUM 138 mmol/L (137-145); Total Protein 6.5 g/dL (6.3-8.2)
[2021-07-09 07:14] LABS: ANION GAP 11.2 MEQ/L (5-15); CHLORIDE 106 mmol/L (98-107)
--- NOTE | 2021-07-09 08:20 | PCM.NOTE ---
Date and Time: 07/09/21817 Subjective Assessment: patient resting comfortably with cpap this morning, his respirations are less labored, he states he is feeling some better. Objective Exam General Appearance: no apparent distress, obese Neurologic Exam: alert, oriented x 3 Respiratory Exam: prolonged expirations, wheezing, No accessory muscle use Cardiovascular Exam: regular rate/rhythm, normal heart sounds Gastrointestinal/Abdomen Exam: soft, No tenderness, No mass Extremity Exam: normal inspection, normal range of motion OBJECTIVE DATA Vital Signs: Vital Signs - 24 hr Temp Pulse Resp BP Pulse Ox 07/09/21 05:39 97 H 25 H 95 07/09/21 04:00 97.3 F 93 H 21 127/58 94 L 07/09/21 02:40 95 H 18 94 L 07/09/21 00:00 97.9 F 102 H 22 132/63 97 07/08/21 22:10 109 H 28 H 90 L 07/08/21 20:00 97.9 F 108 H 24 149/68 91 L 07/08/21 18:55 106 H 26 H 88 L 07/08/21 16:00 91 L 07/08/21 15:33 96.8 F 111 H 18 152/79 89 L 07/08/21 15:29 104 H 24 86 L 07/08/21 13:38 97.3 F 100 H 30 H 122/69 90 L 07/08/21 12:55 92 L 07/08/21 12:45 97.2 F 90 20 105/58 96 07/08/21 11:55 97.2 F 98 H 20 133/90 98 07/08/21 10:32 97.9 F 102 H 20 106/71 98 07/08/21 09:08 97.9 F 98 H 24 114/76 94 L 07/08/21 08:59 94 L 07/08/21 08:34 106 H 28 H 96 Pain Assessment - Last Documented Pain Intensity 0 Intake and Output: Intake & Output 07/06/21 07/07/21 07/08/21 07/09/21 11:59 11:59 11:59 11:59 Intake Total 1460 Balance 1460 Weight 163 kg 159.7 kg Lab Results: Lab Results-Last 24 Hours 07/08/21 07/08/21 07/08/21 Range/Units 08:10 08:10 08:12 WBC 9.1 (4.0-10.5) K/mm3 RBC 4.90 (4.1-5.6) M/mm3 Hgb 14.4 (12.5-18.0) gm/dl Hct 46.3 (42-50) % MCV 94.5 (78-100) fl MCH 29.4 (26-32) pg MCHC 31.1 L (32-36) g/dl RDW 15.6 H (11.5-14.0) % Plt Count 265 (150-450) K/mm3 MPV 10.3 (7.5-11.0) fl Gran % 69.3 H (36.0-66.0) % Eos # (Auto) 0.33 (0-0.5) Absolute Lymphs (auto) 1.39 (1.0-4.6) Absolute Monos (auto) 1.05 (0.0-1.3) Lymphocytes % 15.3 L (24.0-44.0) % Monocytes % 11.5 (0.0-12.0) % Eosinophils % 3.6 (0.00-5.0) % Basophils % 0.3 (0.0-0.4) % Absolute Granulocytes 6.30 (1.4-6.9) Basophils # 0.03 (0-0.4) D-Dimer (215-500) ng/mL Puncture Site pCO2 (35-45) mmHg pO2 (75-100) mmHg Base Excess (-2.0-2.0) O2 Saturation (94-100) g/dF ABG pH (7.35-7.45) ABG HCO3 (22-28) ABG O2 Sat (Measured) (95-100) % Crispin Test A-a Gradient a/A Ratio Hemoglobin Carboxyhemoglobin (0.0-6.9) % THgb Methemoglobin (1.4-1.5) % Temperature C POC O2 Flow Rate % Sodium 141 (137-145) mmol/L Potassium 4.6 (3.5-5.1) mmol/L Chloride 105 (98-107) mmol/L Carbon Dioxide 28 (22-30) mmol/L Anion Gap 13.4 (5-15) MEQ/L BUN 14 (9-20) mg/dL Creatinine 1.11 (0.66-1.25) mg/dL Estimated GFR > 60.0 ML/MIN Glucose 102 (74-106) mg/dL Lactic Acid (0.4-2.0) Calcium 8.9 (8.4-10.2) mg/dL Total Bilirubin 0.30 (0.2-1.3) mg/dL AST 26 (17-59) U/L ALT 18 (0-50) U/L Alkaline Phosphatase 87 (38-126) U/L Troponin I < 0.012 (0.000-0.034) ng/mL NT-Pro-B Natriuret Pep 48.3 (0-450) pg/mL Serum Total Protein 7.8 (6.3-8.2) g/dL Albumin 4.4 (3.5-5.0) g/dL Urine Color (YELLOW) Urine Appearance (CLEAR) Urine pH (5-6) Ur Specific [place] (1.005-1.025) Urine Protein (Negative) Urine Ketones (NEGATIVE) Urine Blood (0-5) Eric/ul Urine Nitrite (NEGATIVE) Urine Bilirubin (NEGATIVE) Urine Urobilinogen (0-1) mg/dL Ur Leukocyte Esterase (NEGATIVE) Urine WBC (Auto) (0-5) /HPF Urine RBC (Auto) (0-2) /HPF U Epithel Cells (Auto) (FEW) /HPF Urine Bacteria (Auto) (NEGATIVE) /HPF Urine Culture Reflexed (NO) Urine Glucose (NEGATIVE) mg/dL Influenza Type A Ag (NEGATIVE) Influenza Type B Ag (NEGATIVE) RSV (PCR) (Negative) SARS-CoV-2 (PCR) (NEGATIVE) 07/08/21 07/08/21 07/08/21 Range/Units 08:12 08:15 08:18 WBC (4.0-10.5) K/mm3 RBC (4.1-5.6) M/mm3 Hgb (12.5-18.0) gm/dl Hct (42-50) % MCV (78-100) fl MCH (26-32) pg MCHC (32-36) g/dl RDW (11.5-14.0) % Plt Count (150-450) K/mm3 MPV (7.5-11.0) fl Gran % (36.0-66.0) % Eos # (Auto) (0-0.5) Absolute Lymphs (auto) (1.0-4.6) Absolute Monos (auto) (0.0-1.3) Lymphocytes % (24.0-44.0) % Monocytes % (0.0-12.0) % Eosinophils % (0.00-5.0) % Basophils % (0.0-0.4) % Absolute Granulocytes (1.4-6.9) Basophils # (0-0.4) D-Dimer 872 H* (215-500) ng/mL Puncture Site RIGHT RADIAL pCO2 37 (35-45) mmHg pO2 86 (75-100) mmHg Base Excess 1.1 (-2.0-2.0) O2 Saturation 94.0 (94-100) g/dF ABG pH 7.44 (7.35-7.45) ABG HCO3 25.1 (22-28) ABG O2 Sat (Measured) 98.1 (95-100) % Crispin Test yes A-a Gradient 96 a/A Ratio 0.47 Hemoglobin 14.7 Carboxyhemoglobin 3.3 (0.0-6.9) % THgb Methemoglobin 0.9 L (1.4-1.5) % Temperature 37.0 C POC O2 Flow Rate 32 % Sodium (137-145) mmol/L Potassium 4.3 (3.5-5.1) mmol/L Chloride (98-107) mmol/L Carbon Dioxide (22-30) mmol/L Anion Gap (5-15) MEQ/L BUN (9-20) mg/dL Creatinine (0.66-1.25) mg/dL Estimated GFR ML/MIN Glucose (74-106) mg/dL Lactic Acid 1.5 (0.4-2.0) Calcium (8.4-10.2) mg/dL Total Bilirubin (0.2-1.3) mg/dL AST (17-59) U/L ALT (0-50) U/L Alkaline Phosphatase (38-126) U/L Troponin I (0.000-0.034) ng/mL NT-Pro-B Natriuret Pep (0-450) pg/mL Serum Total Protein (6.3-8.2) g/dL Albumin (3.5-5.0) g/dL Urine Color (YELLOW) Urine Appearance (CLEAR) Urine pH (5-6) Ur Specific [place] (1.005-1.025) Urine Protein (Negative) Urine Ketones (NEGATIVE) Urine Blood (0-5) Eric/ul Urine Nitrite (NEGATIVE) Urine Bilirubin (NEGATIVE) Urine Urobilinogen (0-1) mg/dL Ur Leukocyte Esterase (NEGATIVE) Urine WBC (Auto) (0-5) /HPF Urine RBC (Auto) (0-2) /HPF U Epithel Cells (Auto) (FEW) /HPF Urine Bacteria (Auto) (NEGATIVE) /HPF Urine Culture Reflexed (NO) Urine Glucose (NEGATIVE) mg/dL Influenza Type A Ag (NEGATIVE) Influenza Type B Ag (NEGATIVE) RSV (PCR) (Negative) SARS-CoV-2 (PCR) (NEGATIVE) 07/08/21 07/08/21 07/08/21 Range/Units 08:32 08:59 11:09 WBC (4.0-10.5) K/mm3 RBC (4.1-5.6) M/mm3 Hgb (12.5-18.0) gm/dl Hct (42-50) % MCV (78-100) fl MCH (26-32) pg MCHC (32-36) g/dl RDW (11.5-14.0) % Plt Count (150-450) K/mm3 MPV (7.5-11.0) fl Gran % (36.0-66.0) % Eos # (Auto) (0-0.5) Absolute Lymphs (auto) (1.0-4.6) Absolute Monos (auto) (0.0-1.3) Lymphocytes % (24.0-44.0) % Monocytes % (0.0-12.0) % Eosinophils % (0.00-5.0) % Basophils % (0.0-0.4) % Absolute Granulocytes (1.4-6.9) Basophils # (0-0.4) D-Dimer (215-500) ng/mL Puncture Site pCO2 (35-45) mmHg pO2 (75-100) mmHg Base Excess (-2.0-2.0) O2 Saturation (94-100) g/dF ABG pH (7.35-7.45) ABG HCO3 (22-28) ABG O2 Sat (Measured) (95-100) % Crispin Test A-a Gradient a/A Ratio Hemoglobin Carboxyhemoglobin (0.0-6.9) % THgb Methemoglobin (1.4-1.5) % Temperature C POC O2 Flow Rate % Sodium (137-145) mmol/L Potassium (3.5-5.1) mmol/L Chloride (98-107) mmol/L Carbon Dioxide (22-30) mmol/L Anion Gap (5-15) MEQ/L BUN (9-20) mg/dL Creatinine (0.66-1.25) mg/dL Estimated GFR ML/MIN Glucose (74-106) mg/dL Lactic Acid (0.4-2.0) Calcium (8.4-10.2) mg/dL Total Bilirubin (0.2-1.3) mg/dL AST (17-59) U/L ALT (0-50) U/L Alkaline Phosphatase (38-126) U/L Troponin I (0.000-0.034) ng/mL NT-Pro-B Natriuret Pep (0-450) pg/mL Serum Total Protein (6.3-8.2) g/dL Albumin (3.5-5.0) g/dL Urine Color COLORLESS (YELLOW) Urine Appearance CLEAR (CLEAR) Urine pH 5.0 (5-6) Ur Specific [place] 1.005 (1.005-1.025) Urine Protein NEGATIVE (Negative) Urine Ketones NEGATIVE (NEGATIVE) Urine Blood NEGATIVE (0-5) Eric/ul Urine Nitrite NEGATIVE (NEGATIVE) Urine Bilirubin NEGATIVE (NEGATIVE) Urine Urobilinogen NEGATIVE (0-1) mg/dL Ur Leukocyte Esterase NEGATIVE (NEGATIVE) Urine WBC (Auto) NONE (0-5) /HPF Urine RBC (Auto) NONE (0-2) /HPF U Epithel Cells (Auto) NONE (FEW) /HPF Urine Bacteria (Auto) NONE (NEGATIVE) /HPF Urine Culture Reflexed NO (NO) Urine Glucose NEGATIVE (NEGATIVE) mg/dL Influenza Type A Ag NEGATIVE NEGATIVE (NEGATIVE) Influenza Type B Ag NEGATIVE NEGATIVE (NEGATIVE) RSV (PCR) NEGATIVE (Negative) SARS-CoV-2 (PCR) NEGATIVE (NEGATIVE) 07/08/21 07/08/21 07/08/21 Range/Units 11:30 14:02 17:40 WBC (4.0-10.5) K/mm3 RBC (4.1-5.6) M/mm3 Hgb (12.5-18.0) gm/dl Hct (42-50) % MCV (78-100) fl MCH (26-32) pg MCHC (32-36) g/dl RDW (11.5-14.0) % Plt Count (150-450) K/mm3 MPV (7.5-11.0) fl Gran % (36.0-66.0) % Eos # (Auto) (0-0.5) Absolute Lymphs (auto) (1.0-4.6) Absolute Monos (auto) (0.0-1.3) Lymphocytes % (24.0-44.0) % Monocytes % (0.0-12.0) % Eosinophils % (0.00-5.0) % Basophils % (0.0-0.4) % Absolute Granulocytes (1.4-6.9) Basophils # (0-0.4) D-Dimer (215-500) ng/mL Puncture Site pCO2 (35-45) mmHg pO2 (75-100) mmHg Base Excess (-2.0-2.0) O2 Saturation (94-100) g/dF ABG pH (7.35-7.45) ABG HCO3 (22-28) ABG O2 Sat (Measured) (95-100) % Crispin Test A-a Gradient a/A Ratio Hemoglobin Carboxyhemoglobin (0.0-6.9) % THgb Methemoglobin (1.4-1.5) % Temperature C POC O2 Flow Rate % Sodium (137-145) mmol/L Potassium (3.5-5.1) mmol/L Chloride (98-107) mmol/L Carbon Dioxide (22-30) mmol/L Anion Gap (5-15) MEQ/L BUN (9-20) mg/dL Creatinine (0.66-1.25) mg/dL Estimated GFR ML/MIN Glucose (74-106) mg/dL Lactic Acid (0.4-2.0) Calcium (8.4-10.2) mg/dL Total Bilirubin (0.2-1.3) mg/dL AST (17-59) U/L ALT (0-50) U/L Alkaline Phosphatase (38-126) U/L Troponin I < 0.012 < 0.012 < 0.012 (0.000-0.034) ng/mL NT-Pro-B Natriuret Pep (0-450) pg/mL Serum Total Protein (6.3-8.2) g/dL Albumin (3.5-5.0) g/dL Urine Color (YELLOW) Urine Appearance (CLEAR) Urine pH (5-6) Ur Specific [place] (1.005-1.025) Urine Protein (Negative) Urine Ketones (NEGATIVE) Urine Blood (0-5) Eric/ul Urine Nitrite (NEGATIVE) Urine Bilirubin (NEGATIVE) Urine Urobilinogen (0-1) mg/dL Ur Leukocyte Esterase (NEGATIVE) Urine WBC (Auto) (0-5) /HPF Urine RBC (Auto) (0-2) /HPF U Epithel Cells (Auto) (FEW) /HPF Urine Bacteria (Auto) (NEGATIVE) /HPF Urine Culture Reflexed (NO) Urine Glucose (NEGATIVE) mg/dL Influenza Type A Ag (NEGATIVE) Influenza Type B Ag (NEGATIVE) RSV (PCR) (Negative) SARS-CoV-2 (PCR) (NEGATIVE) 07/09/21 07/09/21 Range/Units 05:15 05:15 WBC 8.2 (4.0-10.5) K/mm3 RBC 4.48 (4.1-5.6) M/mm3 Hgb 13.0 (12.5-18.0) gm/dl Hct 42.6 (42-50) % MCV 95.1 (78-100) fl MCH 29.0 (26-32) pg MCHC 30.5 L (32-36) g/dl RDW 15.8 H (11.5-14.0) % Plt Count 251 (150-450) K/mm3 MPV 10.4 (7.5-11.0) fl Gran % (36.0-66.0) % Eos # (Auto) (0-0.5) Absolute Lymphs (auto) (1.0-4.6) Absolute Monos (auto) (0.0-1.3) Lymphocytes % (24.0-44.0) % Monocytes % (0.0-12.0) % Eosinophils % (0.00-5.0) % Basophils % (0.0-0.4) % Absolute Granulocytes (1.4-6.9) Basophils # (0-0.4) D-Dimer (215-500) ng/mL Puncture Site pCO2 (35-45) mmHg pO2 (75-100) mmHg Base Excess (-2.0-2.0) O2 Saturation (94-100) g/dF ABG pH (7.35-7.45) ABG HCO3 (22-28) ABG O2 Sat (Measured) (95-100) % Crispin Test A-a Gradient a/A Ratio Hemoglobin Carboxyhemoglobin (0.0-6.9) % THgb Methemoglobin (1.4-1.5) % Temperature C POC O2 Flow Rate % Sodium 138 (137-145) mmol/L Potassium 5.2 H (3.5-5.1) mmol/L Chloride 106 (98-107) mmol/L Carbon Dioxide 26 (22-30) mmol/L Anion Gap 11.2 (5-15) MEQ/L BUN 16 (9-20) mg/dL Creatinine 0.90 (0.66-1.25) mg/dL Estimated GFR > 60.0 ML/MIN Glucose 197 H (74-106) mg/dL Lactic Acid (0.4-2.0) Calcium 9.0 (8.4-10.2) mg/dL Total Bilirubin 0.20 (0.2-1.3) mg/dL AST 25 (17-59) U/L ALT 18 (0-50) U/L Alkaline Phosphatase 76 (38-126) U/L Troponin I (0.000-0.034) ng/mL NT-Pro-B Natriuret Pep (0-450) pg/mL Serum Total Protein 6.5 (6.3-8.2) g/dL Albumin 3.6 (3.5-5.0) g/dL Urine Color (YELLOW) Urine Appearance (CLEAR) Urine pH (5-6) Ur Specific [place] (1.005-1.025) Urine Protein (Negative) Urine Ketones (NEGATIVE) Urine Blood (0-5) Eric/ul Urine Nitrite (NEGATIVE) Urine Bilirubin (NEGATIVE) Urine Urobilinogen (0-1) mg/dL Ur Leukocyte Esterase (NEGATIVE) Urine WBC (Auto) (0-5) /HPF Urine RBC (Auto) (0-2) /HPF U Epithel Cells (Auto) (FEW) /HPF Urine Bacteria (Auto) (NEGATIVE) /HPF Urine Culture Reflexed (NO) Urine Glucose (NEGATIVE) mg/dL Influenza Type A Ag (NEGATIVE) Influenza Type B Ag (NEGATIVE) RSV (PCR) (Negative) SARS-CoV-2 (PCR) (NEGATIVE) Radiology Exams: Radiology Procedures Category Date Time Status CHEST 1 VIEW (PORTABLE) Stat Exams 07/08/21 08:13 Completed CHEST WITH CONTRAST [CT] Stat Exams 07/08/21 09:01 Completed Assessment/Plan (1) COPD exacerbation Current Visit: Yes Status: Acute Assessment & Plan: continue current management, still with diffuse wheezing but improved air exchange and decreased work of breathing noted. Code(s): J44.1 - CHRONIC OBSTRUCTIVE PULMONARY DISEASE W (ACUTE) EXACERBATION (2) HIV positive Current Visit: Yes Status: Acute Code(s): Z21 - ASYMPTOMATIC HUMAN IMMUNODEFICIENCY VIRUS INFECTION STATUS
[2021-07-09] MEDS: Coreg 6.25 MG PO SCH ×2 (09:29→21:57)
[2021-07-09] MEDS: Cozaar 50 MG PO SCH (09:29)
[2021-07-09] MEDS: BUMEX 1 MG PO SCH ×2 (09:29→17:44)
[2021-07-09] MEDS: NICODERM CQ 14 MG TOP SCH (09:29)
[2021-07-09] MEDS: Ditropan XL 5 MG PO SCH (09:29)
[2021-07-09] MEDS: Pepcid 20 MG PO SCH (09:29)
[2021-07-09] MEDS: Protonix 20MG Tablet PO SCH (09:29)
[2021-07-09] MEDS: ROCEPHIN 1 Gm-D5w 50 ml Bag** 1 G/50 ML IVPB IV SCH (09:30)
[2021-07-09] MEDS ORDERED: NON-FORMULARY ITEM (Budesonide/Formoterol Fumarate [Symbicort 160-4.5 Mcg Inhaler] 10.2 GM IH SCH (10:00)
[2021-07-09] MEDS ORDERED: ABACAVIR PO SCH (10:00)
[2021-07-09] MEDS ORDERED: NON-FORMULARY ITEM (Fluticasone Propionate [Flovent Diskus] 50 MCG Blst.W.Dev) IH SCH (10:00)
[2021-07-09] MEDS ORDERED: NON-FORMULARY ITEM (Famotidine [Pepcid] 40 MG Tablet) PO SCH (10:00)
[2021-07-09] MEDS ORDERED: LAMIVUDINE PO SCH (10:00)
[2021-07-09] MEDS ORDERED: DOLUTEGRAVIR PO SCH (10:00)
[2021-07-09] MEDS ORDERED: [UNRECOGNIZED DRUG - OTHER] PO SCH (10:00)
[2021-07-09] MEDS: Zithromax 500 MG/ 250 ML NaCl Premix 500 MG/250 ML IVPB IV SCH (10:07)
[2021-07-09] MEDS: PATIENT OWN MEDICATION PO SCH (17:44)
[2021-07-10] MEDS ORDERED: Tums EX 750 MG PO PRN (02:30)
[2021-07-10] MEDS ORDERED: Tums EX 750 MG ONE (02:33)
[2021-07-10] MEDS: DUONEB 0.5-3 MG/3 ml Neb IH SCH ×3 (02:34→10:47)
[2021-07-10] MEDS: solu-MEDROL 80 MG, Sterile H2O 10 ml 2 ML IV SCH ×4 (05:38→11:20)
[2021-07-10 05:41] LABS: Hematocrit 44.2 % (42-50); Hemoglobin 13.5 gm/dl (12.5-18.0); Mean Cell Volume 95.9 fl (78-100); Mean Corpuscular Hemoglobin 29.3 pg (26-32); Mean Corpuscular Hgb Concent. 30.5 g/dl (32-36); Mean Platelet Volume 10.8 fl (7.5-11.0); Platelet Count 268 K/mm3 (150-450); Red Blood Count 4.61 M/mm3 (4.1-5.6); Red Cell Distribution Width 16.2 % (11.5-14.0); White Blood Count 14.6 K/mm3 (4.0-10.5)
[2021-07-10 05:56] LABS: ANION GAP 15.3 MEQ/L (5-15); BLOOD UREA NITROGEN 16 mg/dL (9-20); CHLORIDE 105 mmol/L (98-107); Carbon Dioxide 23 mmol/L (22-30); Creatinine 1 0.95 mg/dL (0.66-1.25); EST GLOMERULAR FILTRATION RATE > 60.0 ML/MIN; Glucose 237 mg/dL (74-106); MAGNESIUM 2.2 mg/dL (1.6-2.3); Potassium 4.5 mmol/L (3.5-5.1); SODIUM 139 mmol/L (137-145)
[2021-07-10 07:24] LABS: BAND 9 % (0.0-2.0); Lymphocytes 10 % (24-44); Monocyte 5 % (0.0-12.0); Neutrophils 76 % (36.-66.); Total Cells Counted 100
[2021-07-10 07:25] LABS: Absolute Neutrophil Ct (ANC) 12.55 (1.4-6.9); Platelet Estimate NORMAL (NORMAL)
[2021-07-10] MEDS: ADVAIR/WIXELLA 250-50 DISKUS 14 DOSE IH SCH (07:26)
--- NOTE | 2021-07-10 08:35 | PCM.DS ---
Discharge Summary Date of Admission: 07/08/21 13:15 Admitting Physician: SENDY JURADO Primary Care Provider: NO FAMILY DOCTOR Allergies Allergies ciprofloxacin [From Cipro] Allergy (Severe, Verified 07/08/21 13:29) Hospital Summary - Hospital Course Hospital Course: patient was admitted as a service patient, found to have acute exacerbation of copd. has improved and sats are maintained on room air, he states he is much better and back to his baseline and would like to go home. lost his nebulizer in a move, was recently homeless but has a place to stay now with a friend. - Vitals & Intake/Output Vital Signs: Vital Signs Temperature 99.1 F 07/10/21 07:41 Pulse Rate 98 H 07/10/21 07:41 Respiratory Rate 17 07/10/21 07:41 Blood Pressure 165/93 07/10/21 07:41 O2 Sat by Pulse Oximetry 95 07/10/21 07:41 Intake & Output: Intake & Output 07/07/21 07/08/21 07/09/21 07/10/21 11:59 11:59 11:59 11:59 Intake Total 1699 2019 Balance 1699 2019 Weight 163 kg 159.7 kg - Lab Result Diagrams: 07/10/21 04:50 07/10/21 04:50 Lab Results-Last 24 Hrs: Lab Results-Last 24 Hours 07/10/21 07/10/21 Range/Units 04:50 04:50 WBC 14.6 H (4.0-10.5) K/mm3 RBC 4.61 (4.1-5.6) M/mm3 Hgb 13.5 (12.5-18.0) gm/dl Hct 44.2 (42-50) % MCV 95.9 (78-100) fl MCH 29.3 (26-32) pg MCHC 30.5 L (32-36) g/dl RDW 16.2 H (11.5-14.0) % Plt Count 268 (150-450) K/mm3 MPV 10.8 (7.5-11.0) fl Absolute Granulocytes 12.55 H (1.4-6.9) Segmented Neutrophils 76 H (36.-66.) % Band Neutrophils 9 H (0.0-2.0) % Lymphocytes (Manual) 10 L (24-44) % Monocytes (Manual) 5 (0.0-12.0) % Platelet Estimate NORMAL (NORMAL) RBC Morphology NORMAL Sodium 139 (137-145) mmol/L Potassium 4.5 (3.5-5.1) mmol/L Chloride 105 (98-107) mmol/L Carbon Dioxide 23 (22-30) mmol/L Anion Gap 15.3 H (5-15) MEQ/L BUN 16 (9-20) mg/dL Creatinine 0.95 (0.66-1.25) mg/dL Estimated GFR > 60.0 ML/MIN Glucose 237 H (74-106) mg/dL Calcium 9.0 (8.4-10.2) mg/dL Magnesium 2.2 (1.6-2.3) mg/dL Micro Results-Entire Visit: Microbiology 07/08/21 08:38 Blood Culture - Preliminary Blood NO GROWTH TO DATE 07/08/21 08:32 Blood Culture - Preliminary Blood NO GROWTH TO DATE - Radiology Exams Ordered Rad Exams-Entire Visit: Radiology Procedures Category Date Time Status CHEST 1 VIEW (PORTABLE) Stat Exams 07/08/21 08:13 Completed CHEST WITH CONTRAST [CT] Stat Exams 07/08/21 09:01 Completed - Procedures and Test Procedures and Tests throughout Hospitalization: Therapy Orders & Screens 07/08/21 08:31 Respiratory Therapy Assessment DAILY Comment: 07/08/21 13:52 RT Screen per Nursing Assess ONCE Comment: Protocol Order Physician Instructions: Greater than 3 points order RT Admission Screen Reason For Exam: Triggered on Admission Diagnosis: COPD Exacerbation Diagnosis: COPD Exacerbation Pneumonia: No Home O2: No Asthma: Yes CHF: No Home CPAP/BIPAP: Yes Home Nebs/MDI: Yes Total Points: 14 Smoking Cessation Education ONCE Comment: Diagnosis: COPD Exacerbation Smoking Status: Current every day smoker How long have you smoked: 20+ years Do you dip or chew tobacco: No 07/08/21 14:17 Oxygen NASAL CANNULA 3 lpm Comment: Diagnosis: COPD Exacerbation 07/08/21 22:46 BiPap/CPAP ROUTINE Comment: Diagnosis: COPD Exacerbation 07/09/21 00:29 Respiratory MDI BID Comment: Diagnosis: COPD Exacerbation 07/10/21 05:11 Smoking Cessation Education ONCE Comment: Diagnosis: COPD Exacerbation Smoking Status: Current every day smoker How long have you smoked: 20+ years Do you dip or chew tobacco: No Discharge Exam General Appearance: no apparent distress, obese Neurologic Exam: alert, oriented x 3 Respiratory Exam: prolonged expirations, wheezing, No accessory muscle use Cardiovascular Exam: regular rate/rhythm, normal heart sounds Gastrointestinal/Abdomen Exam: soft, No tenderness, No mass Extremity Exam: normal inspection, normal range of motion Skin Exam: normal color, warm, dry Final Diagnosis/Problem List - Final Discharge Diagnosis/Problem (1) COPD exacerbation Current Visit: Yes Status: Acute Assessment & Plan: home on duonebs, prednisone and doxycycline Code(s): J44.1 - CHRONIC OBSTRUCTIVE PULMONARY DISEASE W (ACUTE) EXACERBATION (2) HIV positive Current Visit: Yes Status: Acute Code(s): Z21 - ASYMPTOMATIC HUMAN IMMUNODEFICIENCY VIRUS INFECTION STATUS - Discharge Disposition: Home, Self-Care Condition: Stable Prescriptions: New Nebulizer and Compressor [[place] Choice Nebulizer] 1 each UD #1 each Prednisone 20 mg [Deltasone 20 mg] 20 mg PO UD #18 tablet Albuterol/Ipratropium 3ml Neb* [DUONEB 0.5-3 MG/3 ml Neb] 3 ml IH Q6H PRN PRN #100 units PRN Reason: Shortness Of Breath Doxycycline Hyclate 100 mg [Vibramycin 100 MG] 100 mg PO BID #14 tab Continue Pantoprazole 20 mg [Protonix 20MG Tablet] 20 mg PO DAILY Losartan Potassium 50 mg [Cozaar 50 MG] 100 mg PO DAILY Carvedilol 6.25 mg [Coreg 6.25 MG] 6.25 mg PO BID Tiotropium [place] [Spiriva Respimat] 1 unit IN BID Bumetanide 1 mg [Bumex 1 mg] 1 mg PO BID Budesonide/Formoterol Fumarate [Symbicort 160-4.5 Mcg Inhaler] 10.2 gm IH DAILY Albuterol Sulfate [Proair Respiclick] 90 mcg IH DAILY Abacavir/Dolutegravir/Lamivudi [Triumeq 600-50-300 mg Tablet] 1 tab PO DAILY Oxybutynin Chloride [Oxybutynin Chloride ER] 5 mg PO DAILY Fluticasone Propionate [Flovent Diskus] 50 mcg IH DAILY Famotidine [Pepcid] 40 mg PO DAILY Follow up with: SENDY JURADO MD [ACTIVE STAFF] - 1 Week
[2021-07-10] MEDS: ROCEPHIN 1 Gm-D5w 50 ml Bag** 1 G/50 ML IVPB IV SCH (09:32)
[2021-07-10] MEDS: Pepcid 20 MG PO SCH (09:32)
[2021-07-10] MEDS: Cozaar 50 MG PO SCH (09:32)
[2021-07-10] MEDS: PATIENT OWN MEDICATION PO SCH ×2 (09:33→09:41)
[2021-07-10] MEDS: Coreg 6.25 MG PO SCH (09:33)
[2021-07-10] MEDS: BUMEX 1 MG PO SCH (09:33)
[2021-07-10] MEDS: Ditropan XL 5 MG PO SCH (09:33)
[2021-07-10] MEDS: Protonix 20MG Tablet PO SCH (09:33)
[2021-07-10] MEDS: NICODERM CQ 14 MG TOP SCH (09:40)
[2021-07-10] MEDS: Zithromax 500 MG/ 250 ML NaCl Premix 500 MG/250 ML IVPB IV SCH (10:17)
[2021-07-13 16:51] VITALS: BP 165/93; PULSE 92; O2SAT 92
== END 2021-07-10 12:15 | disposition home or self-care (01) ==
LOC: ED 08:03 → MED SURG 13:15
PROVIDERS: ADMIT Family Medicine; ATTEND Family Medicine
DX: J44.1 Chronic obstructive pulmonary disease with (acute) exacerbation (principal); N28.1 Cyst of kidney, acquired; R09.02 Hypoxemia; F17.200 Nicotine dependence, unspecified, uncomplicated; E78.00 Pure hypercholesterolemia, unspecified; I10 Essential (primary) hypertension; R00.0 Tachycardia, unspecified; Z79.899 Other long term (current) drug therapy; Z21 Asymptomatic human immunodeficiency virus [HIV] infection status; M47.819 Spondylosis without myelopathy or radiculopathy, site unspecified; Z20.828 Contact with and (suspected) exposure to other viral communicable diseases
CPT/HCPCS: 0241U; 36000; 36415; 36600; 71045; 71260; 80048; 80053; 81001; 82375; 82803; 83605; 83735; 83880; 84484; 85025; 85027; 85379; 87040; 87400; 93005; 93041; 93268; 94002; 94003; 94640; 94760; 94762; 96365; 96372; 96374; 99285; G0378; J0456; J0696; J2930; J3475; J7609; A9270-GY